=== PATIENT | male | born 1970 ===

== ENCOUNTER 2016-05-15 02:38 | Outpatient (CLI) | END 2016-05-15 02:39 | LOC: AMBL 02:38 | PROVIDERS: ATTEND Family Medicine | DX: R55 Syncope and collapse (principal); R53.1 Weakness; R42 Dizziness and giddiness; F41.9 Anxiety disorder, unspecified; R03.1 Nonspecific low blood-pressure reading; V49.9XXA Car occupant (driver) (passenger) injured in unspecified traffic accident, initial encounter ==